=== PATIENT | male | born 1990 | race Caucasian/White ===

== ENCOUNTER 2016-08-27 13:28 | Inpatient (IN) | payer BC ==
--- NOTE | ~2016-08-27 | HP ---
Unit #: [id number] #: [id number] Patient: TIKA,ROLY HELMS [id number] [address] [address] [id number] I MR#: [id number] NAME: ROLY MAYEN ROOM: 563 Age: 25 Sex: M Admission Date: 08/27/2016 : 1990 Attending Physician: Miguel Sanchez HISTORY AND PHYSICAL HISTORY AND EXAM Mr. Mayen is a 25-year-old gentleman who presented to the emergency room in [place] with complaints of right inguinal pain, bulge and nausea and vomiting. In the emergency room, a CT scan was consistent with incarcerated right inguinal hernia with small bowel obstruction. There is also dilated proximal small bowel and they were questioning if there was any possible closed loop obstruction in the abdomen. The patient was transferred to [facility] for definitive evaluation and treatment. By the time the patient arrived at [facility], his hernia had reduced; his abdominal pain, nausea and vomiting had resolved. His abdominal exam was benign on initial evaluation here at [facility]. PAST MEDICAL HISTORY Coats tooth extraction. No allergies to medication. No medications. FAMILY HISTORY Diabetes. SOCIAL HISTORY Denies use of tobacco or alcohol. He is single. He works in a factory. REVIEW OF SYSTEMS No hematemesis, hematochezia, melena. No fever or chills. PHYSICAL EXAMINATION VITAL SIGNS: Temperature is 98. On admission to the emergency room his pulse was 113, blood pressure was 142/92, respirations were 18 and unlabored. GENERAL: He is awake, alert, and oriented, currently in no acute distress. HEENT: Unremarkable. HEART: Regular rate and rhythm without murmur. LUNGS: Clear. ABDOMEN: Soft, nondistended. He does not have any abdominal tenderness or pain. His hernia is now reduced and he does not have the discomfort he initially presented with. In standing the patient, he does have currently a palpable right inguinal hernia, but it is reduced. Left inguinal canal: I could not palpate a hernia. Left testis is normal. Right testicle is not well defined due to the large hernia sac and probable associated hydrocele. DIAGNOSTIC STUDIES LABORATORY STUDIES: Basic metabolic panel shows a sodium 136, potassium 3.6, chloride 103, CO2 of 22, glucose 164, BUN 17, creatinine 0.8, calcium Unit #: [id number] #: [id number] Patient: TIKA,ROLY HELMS 9.5. White count 21,300, hemoglobin 16.9, platelets 277,000. ASSESSMENT AND PLAN The patient initially presented with acute pain, bulge in right inguinal canal and nausea and vomiting and CT was consistent with a right inguinal hernia that had incarcerated small bowel loops. By the time the patient got to [facility] in transfer, he was asymptomatic and his hernia had reduced. His abdominal exam was benign and he showed no evidence of abdominal pain or ischemia. We plan on doing an inguinal exploration and repair as appropriate. I discussed the risks, benefits, and complications with the patient and his mother in preoperative hold and they agreed to proceed. Dictated by Epifanio Roach/pro TD: 08/27/2016 18:00 JOB #: [id number] HISTORY AND PHYSICAL Page 1 of 1 X Gordon Cintron MD HISTORY AND PHYSICAL
--- NOTE | ~2016-08-27 | CR236 ---
[facility] A Service of [facility] & [facility] / [facility] RADIOLOGY TEXT RESULTS PATIENT: ROLY VILLELA LOCATION: C2A 229-01 : [birth year] UNIT #: [id number] AGE: [address]: Miguel Sanchez MD SEX: M ORDER DR: [id number] [facility]. [place], [place] [address] [id number] MR#: [id number] Acc #: [id number] NAME: ROLY VILLELA : 1990 SEX: M STUDY DATE/TIME: 08/28/2016 8:09 UNIT: C2A ROOM: 229 STUDY DESCRIPTION: CR Small Bowel Sbft W Films Attending Physician: Eddy Sanchez M.D. Ordering Physician: Ricky Cintron M.D. MEDICAL IMAGING REPORT This report is preliminary unless electronic signature is present EXAM Small bowel follow-through INDICATION Hernia repair surgery yesterday. Nausea and vomiting since yesterday. The fluoroscopy time was 0 minutes. Nine radiographs were obtained. FINDINGS A supervisor patching view was obtained. Patient drank barium and multiple abdominal radiographs were obtained. The study demonstrates no evidence for bowel obstruction. There was barium within the colon by 5.5 hours. IMPRESSION No evidence for bowel obstruction. Dictated by... Donaldo Hearn M.D. THIS IS AN ELECTRONICALLY VERIFIED REPORT Donaldo Hearn M.D. at 08/30/2016 7:44 AM RENATO/kurt TD: 08/29/2016 08:23 JOB #: [id number] MEDICAL IMAGING REPORT Page 1 of 1 COPY
--- NOTE | ~2016-08-27 | OR ---
Unit #: [id number] #: [id number] Patient: ROLY MAYEN [id number] [facility] [address] [place], [place] [address] [id number] I MR#: [id number] NAME: ROLY MAYEN ROOM: 563 Date of Procedure: 08/27/2016 Admission Date: 08/27/2016 Surgeon: Gordon Cintron M.D. : 1990 Attending Physician: Miguel Sanchez OPERATIVE REPORT PREOPERATIVE DIAGNOSIS Incarcerated right inguinal hernia. POSTOPERATIVE DIAGNOSIS Incarcerated right inguinal hernia. PROCEDURE PERFORMED Right inguinal exploration, repair of a longstanding and a large indirect right inguinal hernia with PerFix plug mesh. ANESTHESIA General endotracheal anesthesia. ESTIMATED BLOOD LOSS 30 mL. INDICATIONS FOR PROCEDURE Mr. Mayen is a 25-year-old gentleman, who presented to [place] [facility] with acute abdominal pain and was diagnosed with an incarcerated right inguinal hernia that on CT scan was containing loops of bowel. The patient was transferred for surgical intervention. On the CT scan, there was also some concern about other loops of bowel in the abdomen. The patient had no evidence of acidosis. There was no pneumatosis. By the time the patient reached [facility], the hernia was reduced. His pain was markedly improved. On preop examination of the inguinal canal, he did have at this time reducible inguinal hernia on the right. Left inguinal canal, I could not appreciate a hernia even though on CT they call the small fat filled left inguinal hernia. Clinically, however, I could not appreciate a hernia. He had a palpable left testis with normal cord. On the right, the scrotum was full and distinct palpation of the edges, the testis were unable to be performed. His abdomen was nondistended and soft. He had no nausea or vomiting. DESCRIPTION OF PROCEDURE The patient was transported from the preoperative hold area to the operating room. After induction of general endotracheal anesthesia, he received antibiotics per SCIP protocol. His abdominal hair and pubic hair was already shaved, so he was prepped and draped in usual sterile fashion. A transverse incision in the skin line was made over the right inguinal canal. We dissected down through the soft tissue and exposed the external oblique aponeurosis. The aponeurosis was opened in the direction of its fibers to include the external ring. The inguinal ligament and the rectus Unit #: [id number] #: [id number] Patient: CASE,ROLY HELMS sheath were dissected out. The hernia sac was very large and the cord structures were abnormally large displacing the normal anatomy, making it very difficult if not impossible to fully identify the sensory nerves. The cord structures elevated from the floor of the inguinal canal. He had a very large thick walled hernia sac extending from the internal ring extending all the way down the cord to the testis. We had to reduce the testis from the scrotal sac and then carefully dissected out the testis, the spermatic cord, and the hernia sac from the other structures and preserve them. The cord structures were able to be preserved. The blood supply appeared to be intact and not damaged. The hernia sac was about 12 inches long, it was very thick walled and at this time, there were no incarcerated contents. They had all reduced with the use of pain medication. The hernia sac was opened and the interior of the sac was inspected and there were no incarcerated contents. I used a pursestring suture to close off the hernia sac and excised the excess hernia sac and sent it to the laboratory. The stump was reduced back through the internal ring into the peritoneal cavity. Prior to suture ligating the hernia sac, I palpated in the peritoneal cavity and could not feel any distended bowel and could not see any evidence of ischemia. For this reason, I felt comfortable suture ligating the hernia sac and reducing the stump back in the peritoneal cavity. The hernia sac stump was held in reduction with a large PerFix plug which was secured with multiple 0 Ethibond interrupted sutures. Because of the weakness in the area, I then performed a Bassini-type repair between the shelving edge of the inguinal ligament and the conjoint tendon throughout the extent of the floor of the inguinal canal. A suture was positioned in the pubic tubercle and the onlay mesh was secured to that. Before completing the repair, the testis was reduced with gubernaculum back into the scrotal sac being careful to ensure that it was lying in the appropriate orientation with no twisting of the spermatic cord. To ensure that there was no twisting or torsion, a 2-0 Vicryl suture was used to tack the tunica to the soft tissue of the scrotum. Once the testis was reduced back in the scrotal sac, the onlay mesh was then stretched over the inguinal canal. The tails were wrapped around the internal ring and secured to the musculofascial tissue superior and lateral to the internal ring. The limbs were secured to the shelving edge of the inguinal ligament, and the lateral portion of the rectus sheath. A relaxing incision was performed in the rectus sheath. 30 mL of 0.5% Marcaine with epinephrine was infiltrated in the fascia and soft tissue. The cord was placed back in the anatomic position again ensuring that there was no twisting of the cord. I then irrigated the operative site with saline and Betadine and then again with saline. There was good hemostasis. The soft tissue was closed with 2-0 Vicryl interrupted suture. The skin was reapproximated with 4-0 Monocryl running subcuticular closure and Dermabond skin adhesive. Sponges and needle counts were correct x3 at the end of the case. The patient tolerated the procedure well and was transported to recovery in stable condition. The patient will be admitted to the hospital postoperatively for pain control and further evaluation as appropriate. Dictated by... Epifanio Roach/deric TD: 08/28/2016 03:39 JOB #: [id number] Unit #: [id number] #: [id number] Patient: TIKA,ROLY HELMS OPERATIVE REPORT Page 1 of 1 X Gordon Cintron MD PROCEDURE OPERATIVE NOTE
[2016-08-27 17:04] LABS: HEMATOCRIT 46.2 % (38.0-50.0); HEMOGLOBIN 15.6 gm/dL (13.0-16.0); MEAN CELL VOLUME 86.9 FL (83-96); MEAN CORPUSCULAR HEMOGLOBIN 29.2 PG (28-34); MEAN CORPUSCULAR HGB CONC 33.7 g/dL (30-36); MEAN PLATELET VOLUME 9.7 FL (6.5-11.5); RED BLOOD COUNT 5.32 X10e (3.90-5.60); RED CELL DISTRIBUTION WIDTH 13.5 % (11.0-15.5); WHITE BLOOD COUNT 15.7 X10e3 (4.0-10.5)
[2016-08-27 17:26] LABS: CALCIUM SERUM 8.9 mg/dL (8.4-10.2); GLOM FILT RATE Estimated 105.6 mL/min (>60)
[2016-08-28 06:13] LABS: HEMATOCRIT 39.9 % (38.0-50.0); MEAN CELL VOLUME 87.5 FL (83-96); MEAN CORPUSCULAR HEMOGLOBIN 29.2 PG (28-34); MEAN CORPUSCULAR HGB CONC 33.3 g/dL (30-36); MEAN PLATELET VOLUME 9.3 FL (6.5-11.5); RED BLOOD COUNT 4.55 X10e (3.90-5.60); RED CELL DISTRIBUTION WIDTH 13.3 % (11.0-15.5); WHITE BLOOD COUNT 14.9 X10e3 (4.0-10.5)
[2016-08-28 06:25] LABS: HEMOGLOBIN 13.3 gm/dL (13.0-16.0)
[2016-08-28 06:48] LABS: CALCIUM SERUM 8.3 mg/dL (8.4-10.2); CREATININE SERUM 0.8 mg/dL (0.6-1.4); POTASSIUM 3.8 mmol/L (3.5-5.1)
[2016-08-28] MEDS ORDERED: HYDROCODON-ACE1 EAC9 PO (17:43)
== END 2016-08-28 17:59 | disposition home or self-care (01) | DRG 352 ==
LOC: CSUR 13:28 → CEDOF 17:22 → C5C 17:23 → C2A 08-28 11:28
PROVIDERS: Obstetrics & Gynecology; Specialist
PROC: 0YU50JZ Supplement Right Inguinal Region with Synthetic Substitute, Open Approach (ICD-10-PCS; principal; 2016-08-27 14:30)
DX: K40.30 Unilateral inguinal hernia, with obstruction, without gangrene, not specified as recurrent (principal); Z83.3 Family history of diabetes mellitus
CPT/HCPCS: 74250; 80048; 83605; 85027; 88302; C1781; J0330; J0690; J1100; J1650; J1885; J2250; J2270; J2710; J3010